=== PATIENT | female | born 1935 | race African-American/Black ===

== ENCOUNTER 2016-11-03 08:35 | Day surgery (SDC) | payer OTHER ==
[2016-11-02 09:44] VITALS: BMI 36.0
--- NOTE | 2016-11-03 06:21 | HP ---
History & Physical Update - History History: No Change - Physical Physical: No Change - Assessment Assessment: No Change - Plan Plan: No Change
[~2016-11-03 08:35] MED LIST: BSS (NA/CA/MG/K) BALANCED SALT SOLUTION OPHTH SOLN 15 ML BOTTLE IO ONE; CHONDROITIN SU A/HYALUR SOD 1 KIT IO ONE; CYCLOPENTOLATE HCL 1% OPHTH SOLN 2 ML BOTTLE OP SCH; LIDOCAINE HCL 1% PRESERVATIVE FREE - 30ML VIAL IO ONE; MOXIFLOXACIN HCL 0.5% OPHTHALMIC 3 ML BOTTLE OP SCH; PHENYLEPHRINE 2.5% OPHTH SOLN 15 ML BOTTLE OP SCH; TOBRA 0.3%/DEXAMETH 0.1% OPHTHALMIC SUSP 2.5 ML BTL TP ONE; TROPICAMIDE 1% OPHTH SOLN 15 ML BOTTLE OP SCH
[2016-11-03] MEDS ORDERED: MOXIFLOXACIN HCL 0.5% OPHTHALMIC 3 ML BOTTLE ONE (08:48)
[2016-11-03] MEDS ORDERED: TROPICAMIDE 1% OPHTH SOLN 15 ML BOTTLE ONE (08:48)
[2016-11-03] MEDS ORDERED: PHENYLEPHRINE 2.5% OPHTH SOLN 15 ML BOTTLE ONE (08:48)
[2016-11-03] MEDS ORDERED: CYCLOPENTOLATE HCL 1% OPHTH SOLN 2 ML BOTTLE ONE (08:48)
[2016-11-03 08:54] VITALS: TEMP 97.7
[2016-11-03] MEDS ORDERED: MOXIFLOXACIN HCL 0.5% OPHTHALMIC 3 ML BOTTLE OD ONE ×3 (09:00→09:20)
[2016-11-03] MEDS ORDERED: PHENYLEPHRINE 2.5% OPHTH SOLN 15 ML BOTTLE OD ONE ×3 (09:00→09:20)
[2016-11-03] MEDS ORDERED: TROPICAMIDE 1% OPHTH SOLN 15 ML BOTTLE OD ONE ×3 (09:00→09:20)
[2016-11-03] MEDS ORDERED: CYCLOPENTOLATE HCL 1% OPHTH SOLN 2 ML BOTTLE OD ONE ×3 (09:00→09:20)
[2016-11-03] MEDS ORDERED: TETRACAINE 0.5% HCL 0.6ML DROPPER.BOTTLE TP ONE (10:32)
[2016-11-03] MEDS ORDERED: POVIDONE-IODINE 5% OPHTHALMIC PREP 30 ML SOLUTION OD ONE (10:35)
[2016-11-03] MEDS ORDERED: BSS (NA/CA/MG/K) BALANCED SALT SOLUTION OPHTH SOLN 15 ML BOTTLE IO ONE (10:42)
[2016-11-03] MEDS ORDERED: MIDAZOLAM HCL 2 MG/2 ML SINGLE DOSE VIAL ONE (10:42)
[2016-11-03] MEDS ORDERED: LIDOCAINE HCL 1% PRESERVATIVE FREE - 30ML VIAL IO ONE (10:42)
[2016-11-03] MEDS ORDERED: CHONDROITIN SU A/HYALUR SOD 1 KIT IO ONE (10:48)
[2016-11-03] MEDS ORDERED: TOBRA 0.3%/DEXAMETH 0.1% OPHTHALMIC SUSP 2.5 ML BTL TP ONE (10:58)
[2016-11-03] MEDS ORDERED: ACETYLCHOLINE 1:100 INTRA-OCUL 20 MG/2 ML KIT IO ONE (10:59)
[2016-11-03] MEDS ORDERED: ACETYLCHOLINE 1:100 INTRA-OCUL 20 MG/2 ML KIT ONE (11:02)
[2016-11-03 12:42] VITALS: BP 124/65; PULSE 69
--- NOTE | 2016-11-04 12:37 | OP ---
DATE OF OPERATION: 11/03/2016 SURGEON: Anatoly Rivera MD PREOPERATIVE DIAGNOSIS: Cataract, right eye. OPERATION: Phacoemulsification and intraocular lens implantation, right eye. POSTOPERATIVE DIAGNOSIS: Cataract, right eye. ANESTHESIA: Topical. COMPLICATIONS: None. BLOOD LOSS: None. SPECIMEN: None. BRIEF HISTORY: The patient is an 81-year-old woman with a past medical history of hypertension, who presents with decreased vision in the right eye down to 20/50 -2 due to 2+ nuclear sclerotic lens and an anterior cortical spoke in visual axis. After the risks, benefits, and alternatives to cataract surgery were discussed with the patient, she consented to cataract surgery for the right eye. DESCRIPTION OF PROCEDURE: The patient was brought to the operating room and prepped and draped in the usual sterile fashion. An eyelid speculum was inserted in the right eye. A paracentesis was made, and the anterior chamber was inflated with nonpreserved lidocaine. This was followed by injection of Viscoat. A groove was made in the temporal clear cornea which was tunneled forward with a crescent blade. The anterior chamber was entered with a 2.75 keratome. The cystotome was used to make an incision at the center of the capsule, and a continuous curvilinear capsulorrhexis was created. The lens was hydrodissected until it was found to rotate freely within the capsular bag. Phacoemulsification was then used to remove the lens in its entirety. Irrigation and aspiration were used to remove residual cortical material. The anterior chamber and capsular bag were reinflated with Provisc, and a 22.5 diopter SN60WF AcrySof intraocular lens was injected into the capsular bag using the Darragh injector. The lens was dialed into place using the Sinskey hook. Irrigation and aspiration were used to remove residual viscoelastic. The wound was stromally hydrated, and of note, there were occasional episodes of iris prolapse throughout the surgery. It was determined to inject Miochol into the eye, and the pupil was found to constrict round with no peaking of the pupil and no iris prolapse. The wound was found to be watertight and the eye was in an appropriate pressure. The eyelid speculum was removed from the eye and TobraDex drops and a clear shield were placed over the right eye. The patient was transferred to the recovery room in stable condition and will follow up tomorrow. Galo [id number] MTDD
== END 2016-11-03 12:00 | disposition home or self-care (01) ==
LOC: JASU-SURG 08:35
PROVIDERS: ATTEND Ophthalmology
PROC: 08RJ3JZ Replacement of Right Lens with Synthetic Substitute, Percutaneous Approach (ICD-10-PCS; principal; 2016-11-03 10:00)
DX: H25.11 Age-related nuclear cataract, right eye (principal)